=== PATIENT | male | born 1995 | race Two or more races ===

== ENCOUNTER 2018-01-20 18:04 | Inpatient (IN) | payer OTHER ==
[2018-01-20] MEDS ORDERED: MAGNESIUM HYDROXIDE 30ML CUP PO (19:00)
[2018-01-20] MEDS ORDERED: DOCUSATE SODIUM 100 MG CAP PO (19:00)
[2018-01-20] MEDS ORDERED: ONDANSETRON 4 MG INJ IV (19:00)
[2018-01-20] MEDS ORDERED: NACL 0.9% 3 ML SYG IV (19:00)
[2018-01-20] MEDS ORDERED: ACETAMINOPHEN 325 MG TAB PO (19:00)
[2018-01-20] MEDS ORDERED: ZOLPIDEM 5 MG TAB PO (19:00)
[2018-01-20] MEDS: AMPICILLIN/SULB 3 GM/NS (PMX) 100 ML IVPB (19:46)
[2018-01-20] MEDS: morphine 2 MG INJ IV (19:46)
[2018-01-20] MEDS: D5W-0.45 NACL + KCL 20 MEQ 1,000 ML IV (19:46)
[2018-01-20] MEDS: HYDROCODONE/APAP (5/325) TAB PO (20:49)
[2018-01-20] MEDS ORDERED: CEPASTAT LOZENGE MT (22:00)
[2018-01-20] MEDS ORDERED: DIPHENHYD PO ×2 (22:30→23:30)
[2018-01-20] MEDS ORDERED: LIDO PO ×2 (22:30→23:30)
[2018-01-20] MEDS ORDERED: MYLANTA PO ×2 (22:30→23:30)
[2018-01-21] MEDS: AMPICILLIN/SULB 3 GM/NS (PMX) 100 ML IVPB ×5 (01:50→23:46)
[2018-01-21] MEDS: morphine 2 MG INJ IV (01:56)
[2018-01-21] MEDS: D5W-0.45 NACL + KCL 20 MEQ 1,000 ML IV ×3 (06:50→21:32)
[2018-01-21 07:17] LABS: ADD MAN DIFF? NO
[2018-01-21 07:20] LABS: BASOPHILS % 0.3 % (0.0-2.0); EOSINOPHILS % 0.1 % (0.0-7.0); HEMATOCRIT 41.1 % (42.0-52.0); HEMOGLOBIN 13.6 g/dl (14.0-18.0); LYMPHOCYTES # 2.2 10^3/ul (0.8-2.9); LYMPHOCYTES % 22.5 % (15.0-51.0); MEAN CORPUSCULAR HEMOGLOBIN 29.8 pg (29.0-33.0); MEAN CORPUSCULAR HGB CONC 33.1 g/dl (32.0-37.0); MEAN CORPUSCULAR VOLUME 89.9 fl (82.0-101.0); MEAN PLATELET VOLUME 9.4 fl (7.4-10.4); MONOCYTE # 1.2 10^3/ul (0.3-0.9); MONOCYTES % 12.1 % (0.0-11.0); NEUTROPHIL # 6.2 10^3/ul (1.6-7.5); NEUTROPHILS % 64.7 % (39.0-77.0); PLATELET COUNT 201 10^3/UL (140-415); POSITIVE DIFF @See below; RED BLOOD COUNT 4.57 10^6/ul (4.70-6.10); RED CELL DISTRIBUTION WIDTH 14.7 % (11.5-14.5)
[2018-01-21 07:20] LABS: WHITE BLOOD COUNT 9.7 10^3/ul (4.8-10.8)
[2018-01-21 07:28] LABS: HEMOGLOBIN A1C 5.4 % (0-5.9)
[2018-01-21 07:49] LABS: ANION GAP 14 (8-16); BLOOD UREA NITROGEN 14 mg/dl (7-20); CALCIUM 8.8 mg/dl (8.4-10.2); CARBON DIOXIDE 28 mmol/L (21-31); CHLORIDE 107 mmol/L (97-110); CREATININE 1.08 mg/dl (0.61-1.24); GLUCOSE 113 mg/dl (70-220); MAGNESIUM 2.8 mg/dl (1.7-2.5); PHOSPHORUS 3.6 mg/dl (2.5-4.9); POTASSIUM 4.5 mmol/L (3.5-5.1); SODIUM 144 mmol/L (135-144)
[2018-01-21] MEDS: HYDROCODONE/APAP (5/325) TAB PO ×2 (07:54→14:27)
[2018-01-21] MEDS: SOD CHLORIDE 0.9% 100 ML (18:05)
[2018-01-21] MEDS: IOHEXOL 300MG/ML 150 ML BTL (18:05)
[2018-01-21] MEDS: PANTOPRAZOLE 40 MG INJ IV (19:22)
[2018-01-21] MEDS: HYDROmorphONE 1 MG/ML SYG IV ×2 (19:40→23:55)
[2018-01-21] MEDS: PHENOL 1.4% SOLN 180 ML BTL MT (21:32)
[2018-01-22] MEDS: PANTOPRAZOLE 40 MG INJ IV ×2 (06:16→17:47)
[2018-01-22] MEDS: AMPICILLIN/SULB 3 GM/NS (PMX) 100 ML IVPB ×4 (06:16→23:10)
[2018-01-22] MEDS: D5W-0.45 NACL + KCL 20 MEQ 1,000 ML IV ×3 (10:38→23:10)
[2018-01-22] MEDS: PHENOL 1.4% SOLN 180 ML BTL MT (15:21)
[2018-01-22] MEDS: HYDROmorphONE 1 MG/ML SYG IV (18:40)
[2018-01-23] MEDS: AMPICILLIN/SULB 3 GM/NS (PMX) 100 ML IVPB ×4 (05:17→23:53)
[2018-01-23] MEDS: PANTOPRAZOLE 40 MG INJ IV ×2 (05:18→17:41)
[2018-01-23 05:38] LABS: ADD MAN DIFF? NO
[2018-01-23 05:40] LABS: BASOPHILS % 0.5 % (0.0-2.0); EOSINOPHILS # 0.1 10^3/ul (0.0-0.5); EOSINOPHILS % 1.3 % (0.0-7.0); HEMATOCRIT 37.1 % (42.0-52.0); HEMOGLOBIN 12.4 g/dl (14.0-18.0); LYMPHOCYTES # 2.7 10^3/ul (0.8-2.9); LYMPHOCYTES % 34.3 % (15.0-51.0); MEAN CORPUSCULAR HEMOGLOBIN 29.6 pg (29.0-33.0); MEAN CORPUSCULAR HGB CONC 33.4 g/dl (32.0-37.0); MEAN CORPUSCULAR VOLUME 88.5 fl (82.0-101.0); MEAN PLATELET VOLUME 9.3 fl (7.4-10.4); MONOCYTE # 0.6 10^3/ul (0.3-0.9); MONOCYTES % 7.3 % (0.0-11.0); NEUTROPHIL # 4.5 10^3/ul (1.6-7.5); NEUTROPHILS % 56.3 % (39.0-77.0); PLATELET COUNT 201 10^3/UL (140-415); POSITIVE DIFF @See below; RED BLOOD COUNT 4.19 10^6/ul (4.70-6.10); RED CELL DISTRIBUTION WIDTH 14.3 % (11.5-14.5)
[2018-01-23 06:14] LABS: IRON 37 ug/dl (35-150)
[2018-01-23 06:23] LABS: % IRON SATURATION 13 % SAT (22-52); TOTAL IRON BINDING CAPACITY 275 ug/dl (241-421)
[2018-01-23 06:24] LABS: ANION GAP 11 (8-16); BLOOD UREA NITROGEN 7 mg/dl (7-20); CALCIUM 8.6 mg/dl (8.4-10.2); CARBON DIOXIDE 29 mmol/L (21-31); CHLORIDE 105 mmol/L (97-110); CREATININE 1.05 mg/dl (0.61-1.24); GLUCOSE 96 mg/dl (70-220); POTASSIUM 3.8 mmol/L (3.5-5.1); SODIUM 141 mmol/L (135-144)
[2018-01-23] MEDS: D5W-0.45 NACL + KCL 20 MEQ 1,000 ML IV (12:41)
[2018-01-23] MEDS: HYDROmorphONE 1 MG/ML SYG IV (21:39)
[2018-01-24] MEDS: AMPICILLIN/SULB 3 GM/NS (PMX) 100 ML IVPB ×3 (05:37→17:43)
[2018-01-24] MEDS: PANTOPRAZOLE 40 MG INJ IV ×2 (05:37→17:42)
[2018-01-24 06:07] LABS: ADD MAN DIFF? NO
[2018-01-24 06:13] LABS: BASOPHILS % 0.3 % (0.0-2.0); EOSINOPHILS # 0.2 10^3/ul (0.0-0.5); EOSINOPHILS % 1.7 % (0.0-7.0); HEMATOCRIT 39.5 % (42.0-52.0); HEMOGLOBIN 13.2 g/dl (14.0-18.0); LYMPHOCYTES # 3.4 10^3/ul (0.8-2.9); LYMPHOCYTES % 37.3 % (15.0-51.0); MEAN CORPUSCULAR HEMOGLOBIN 29.8 pg (29.0-33.0); MEAN CORPUSCULAR HGB CONC 33.4 g/dl (32.0-37.0); MEAN CORPUSCULAR VOLUME 89.2 fl (82.0-101.0); MEAN PLATELET VOLUME 9.4 fl (7.4-10.4); MONOCYTE # 0.8 10^3/ul (0.3-0.9); MONOCYTES % 8.4 % (0.0-11.0); NEUTROPHIL # 4.8 10^3/ul (1.6-7.5); NEUTROPHILS % 51.9 % (39.0-77.0); PLATELET COUNT 226 10^3/UL (140-415); POSITIVE DIFF @See below; RED BLOOD COUNT 4.43 10^6/ul (4.70-6.10); RED CELL DISTRIBUTION WIDTH 13.9 % (11.5-14.5)
[2018-01-24 06:13] LABS: WHITE BLOOD COUNT 9.2 10^3/ul (4.8-10.8)
[2018-01-24] MEDS: D5W-0.45 NACL + KCL 20 MEQ 1,000 ML IV ×3 (06:19→17:43)
[2018-01-24 06:45] LABS: ANION GAP 12 (8-16); BLOOD UREA NITROGEN 6 mg/dl (7-20); CALCIUM 8.9 mg/dl (8.4-10.2); CARBON DIOXIDE 29 mmol/L (21-31); CHLORIDE 104 mmol/L (97-110); CREATININE 1.07 mg/dl (0.61-1.24); GLUCOSE 80 mg/dl (70-220); POTASSIUM 4.3 mmol/L (3.5-5.1); SODIUM 141 mmol/L (135-144)
[2018-01-24] MEDS: FERROUS SULFATE (EC) 325 MG TAB PO ×2 (08:29→08:31)
[2018-01-24] MEDS: HYDROmorphONE 1 MG/ML SYG IV (22:36)
[2018-01-25] MEDS: AMPICILLIN/SULB 3 GM/NS (PMX) 100 ML IVPB ×5 (00:05→23:59)
[2018-01-25 05:15] LABS: HEMATOCRIT 41.9 % (42.0-52.0); HEMOGLOBIN 13.9 g/dl (14.0-18.0); MEAN CORPUSCULAR HEMOGLOBIN 29.4 pg (29.0-33.0); MEAN CORPUSCULAR HGB CONC 33.2 g/dl (32.0-37.0); MEAN CORPUSCULAR VOLUME 88.8 fl (82.0-101.0); MEAN PLATELET VOLUME 8.9 fl (7.4-10.4); PLATELET COUNT 260 10^3/UL (140-415); POSITIVE DIFF @See below; RED BLOOD COUNT 4.72 10^6/ul (4.70-6.10); RED CELL DISTRIBUTION WIDTH 13.8 % (11.5-14.5)
[2018-01-25 05:15] LABS: WHITE BLOOD COUNT 6.7 10^3/ul (4.8-10.8)
[2018-01-25] MEDS: PANTOPRAZOLE 40 MG INJ IV ×2 (05:43→17:31)
[2018-01-25 05:45] LABS: ADD MAN DIFF? YES
[2018-01-25] MEDS: D5W-0.45 NACL + KCL 20 MEQ 1,000 ML IV ×2 (05:47→17:31)
[2018-01-25 05:48] LABS: ANION GAP 10 (8-16); BLOOD UREA NITROGEN 6 mg/dl (7-20); CARBON DIOXIDE 32 mmol/L (21-31); CHLORIDE 104 mmol/L (97-110); CREATININE 1.14 mg/dl (0.61-1.24); GLUCOSE 94 mg/dl (70-220); POTASSIUM 4.4 mmol/L (3.5-5.1); SODIUM 142 mmol/L (135-144)
[2018-01-25 07:30] LABS: EOSINOPHILS % (M) 2 % (0-7); LYMPHOCYTES #M 3.5 10^3/ul (0.8-2.9); LYMPHOCYTES % (M) 53 % (15-51); MONOCYTE #M 0.3 10^3/ul (0.3-0.9); MONOCYTES % (M) 5 % (0-11); PLATELET ESTIMATE NORMAL; REACTIVE LYMPHOCYTES% (M) 1 % (0-0); SEGMENTED NEUTROPHILS (M) % 39 % (39-77); SMUDGE%M 14 % (0-0)
[2018-01-25] MEDS: HYDROmorphONE 1 MG/ML SYG IV (17:32)
[2018-01-26] MEDS: HYDROmorphONE 1 MG/ML SYG IV ×2 (01:37→12:15)
[2018-01-26] MEDS: D5W-0.45 NACL + KCL 20 MEQ 1,000 ML IV (05:03)
[2018-01-26] MEDS: PANTOPRAZOLE 40 MG INJ IV (05:36)
[2018-01-26] MEDS: AMPICILLIN/SULB 3 GM/NS (PMX) 100 ML IVPB ×2 (05:36→12:15)
[2018-01-26 05:39] LABS: ADD MAN DIFF? NO
[2018-01-26 05:42] LABS: BASOPHILS % 0.5 % (0.0-2.0); EOSINOPHILS # 0.2 10^3/ul (0.0-0.5); EOSINOPHILS % 2.7 % (0.0-7.0); HEMATOCRIT 42.7 % (42.0-52.0); LYMPHOCYTES # 3.6 10^3/ul (0.8-2.9); LYMPHOCYTES % 49.3 % (15.0-51.0); MEAN CORPUSCULAR HEMOGLOBIN 29.1 pg (29.0-33.0); MEAN CORPUSCULAR HGB CONC 32.8 g/dl (32.0-37.0); MEAN CORPUSCULAR VOLUME 88.8 fl (82.0-101.0); MEAN PLATELET VOLUME 9.1 fl (7.4-10.4); MONOCYTE # 0.7 10^3/ul (0.3-0.9); MONOCYTES % 9.7 % (0.0-11.0); NEUTROPHIL # 2.7 10^3/ul (1.6-7.5); NEUTROPHILS % 37.3 % (39.0-77.0); PLATELET COUNT 270 10^3/UL (140-415); POSITIVE DIFF @See below; RED BLOOD COUNT 4.81 10^6/ul (4.70-6.10); RED CELL DISTRIBUTION WIDTH 13.9 % (11.5-14.5)
[2018-01-26 05:42] LABS: WHITE BLOOD COUNT 7.4 10^3/ul (4.8-10.8)
[2018-01-26 06:01] LABS: ANION GAP 10 (8-16); BLOOD UREA NITROGEN 5 mg/dl (7-20); CALCIUM 8.9 mg/dl (8.4-10.2); CARBON DIOXIDE 30 mmol/L (21-31); CHLORIDE 104 mmol/L (97-110); CREATININE 1.04 mg/dl (0.61-1.24); GLUCOSE 83 mg/dl (70-220); POTASSIUM 4.2 mmol/L (3.5-5.1); SODIUM 140 mmol/L (135-144)
[2018-01-26 13:16] LABS: ANISOCYTOSIS 1+ (0-0); BAND NEUTROPHILS #M 0.3 10^3/ul (0.0-0.6); BAND NEUTROPHILS % (M) 5 % (0-4); BASOPHILS % (M) 1 % (0-2); BURR CELLS 2+ (0-0); EOSINOPHILS % (M) 3 % (0-7); GIANT THROMBO% (M) 1 % (0-0); LYMPHOCYTES #M 3.4 10^3/ul (0.8-2.9); LYMPHOCYTES % (M) 47 % (15-51); MICROCYTOSIS 1+ (0-0); MONOCYTE #M 0.4 10^3/ul (0.3-0.9); MONOCYTES % (M) 6 % (0-11); MYELOCYTES % (M) 1 % (0-0); PLATELET ESTIMATE NORMAL; POIKILOCYTOSIS 3+ (0-0); REACTIVE LYMPHOCYTES #M 0.2 10^3/ul (0.0-0.0); REACTIVE LYMPHOCYTES% (M) 3 % (0-0); SEG NEUT #M 2.5 10^3/ul (1.6-7.5); SEGMENTED NEUTROPHILS (M) % 34 % (39-77); SMUDGE%M 13 % (0-0)
== END 2018-01-26 13:45 | disposition home or self-care (01) | DRG 153 ==
LOC: PP2 18:04
DX: J03.90 Acute tonsillitis, unspecified (principal); F17.200 Nicotine dependence, unspecified, uncomplicated; E83.41 Hypermagnesemia; D64.9 Anemia, unspecified
CPT/HCPCS: 70491; 80048; 82728; 83036; 83540; 83735; 84100; 85025